=== PATIENT | female | born 1980 ===

== ENCOUNTER 2016-11-03 12:32 | Emergency (ER) | payer MEDICAID, OTHER ==
[2016-11-03 12:38] VITALS: RESP 16; O2SAT 98
--- NOTE | 2016-11-03 13:34 | C.PDOC ---
History Of Present Illness A 36 year old female, without a prior PMH, presents to the emergency room with complaints of sinus congestion, a mild headache, and itchy eyes for the last week. Patient notes mucus is clear in color. Patient denies fever, cough, sore throat, or any other complaints. Time Seen by Provider: 11/03/16 13:02 Chief Complaint (Nursing): Dizziness/Lightheaded History Per: Patient History/Exam Limitations: no limitations Onset/Duration Of Symptoms: Other (1 week) Current Symptoms Are (Timing): Still Present Location Of Pain: None Sick Contacts (Context): None Associated Symptoms: Sputum (Mucus is clear in color). denies: Fever, Chills, Sore Throat, Cough, Nausea, Vomiting, Diarrhea Ear Symptoms: Bilateral: None Severity: Mild Recent travel outside of the [place]: No Past Medical History Reviewed: Historical Data, Nursing Documentation, Vital Signs Vital Signs: Last Vital Signs Temp 97.2 F L 11/03/16 13:56 Pulse 88 11/03/16 13:56 Resp 16 11/03/16 13:56 BP 110/72 11/03/16 13:56 Pulse Ox 98 11/03/16 13:56 Family History: States: No Known Family Hx - Social History Hx Alcohol Use: No Hx Substance Use: No - Immunization History Hx Tetanus Toxoid Vaccination: Yes Hx Influenza Vaccination: Yes Hx Pneumococcal Vaccination: Yes Review Of Systems Except As Marked, All Systems Reviewed And Found Negative. Constitutional: Negative for: Fever, Chills Eyes: Positive for: Other (Itchy eyes) ENT: Positive for: Other (Sinus congestion). Negative for: Throat Pain (Sore throat) Respiratory: Negative for: Cough Gastrointestinal: Negative for: Nausea, Vomiting, Diarrhea Neurological: Positive for: Headache Physical Exam - Physical Exam Appears: Non-toxic Skin: Warm, Dry, No Rash Head: Atraumatic, Normacephalic Eye(s): bilateral: Normal Inspection Ear(s): Bilateral: Normal Nose: Other (Boggy terminants ) Oral Mucosa: Moist Neck: Normal ROM, No Midline Cervical Tenderness, No Paracervical Tenderness, Supple Cardiovascular: Rhythm Regular Respiratory: Normal Breath Sounds, No Rales, No Rhonchi, No Wheezing Gastrointestinal/Abdominal: Soft, No Tenderness Extremity: Normal ROM, No Tenderness Neurological/Psych: Oriented x3, Normal Speech, Normal Cognition ED Course And Treatment O2 Sat by Pulse Oximetry: 98 Medical Decision Making Medical Decision Making: Patient is asking for medications to go home with. Patient doesn't want anything that will cause her to stay in the ER. Disposition - Disposition Referrals: [facility] [Outside] [facility] [Outside] [facility] [Outside] Disposition: HOME/ ROUTINE Disposition Time: 02:00 Condition: GOOD Additional Instructions: please follow up with your doctor/clnic. return to er with worsening symptoms or concerns Prescriptions: Fluticasone Propionate [Flonase] 1 spr NS DAILY #1 bottle Loratadine [Claritin] 10 mg PO DAILY PRN #20 tab PRN Reason: Allergy Symptoms Instructions: Rhinosinusitis (ED), Allergies (ED) Print Language: MONEGASQUE - Clinical Impression Clinical Impression: rinosinusitis allergy - Scribe Statement The provider has reviewed the documentation as recorded by the Scribace Garcia All medical record entries made by the Ryneibace were at my direction and personally dictated by me. I have reviewed the chart and agree that the record accurately reflects my personal performance of the history, physical exam, medical decision making, and the department course for this patient. I have also personally directed, reviewed, and agree with the discharge instructions and disposition.
[2016-11-03 13:58] VITALS: BP 110/72; PULSE 88; TEMP 97.2
== END 2016-11-03 13:30 | disposition home or self-care (01) ==
LOC: C.ER 12:32
DX: J30.9 Allergic rhinitis, unspecified (principal)

== ENCOUNTER 2018-10-21 11:17 | Emergency (ER) | payer MEDICAID, OTHER ==
[2018-10-21 11:24] VITALS: BP 118/79; PULSE 82; RESP 18; TEMP 97.3; O2SAT 97
[2018-10-21] MEDS ORDERED: Amoxicillin-Clav 875-125 mg Tab PO STA (11:47)
--- NOTE | 2018-10-21 11:52 | C.PDOC ---
History Of Present Illness 38 yo female come in for evaluation of nasal congestion, intermittent headache, Right earache developed for past 3-4 days. Also , had episode of suprapubic pain this AM. Denies high fever, chills, severe headache, dizziness, ear discharge, drooling, neck pain, CP, SOB, dyspnea, wheezing, V/D, hematuria, vaginal irritation or discharge. Ambulatory, not in any apparent distress. Time Seen by Provider: 10/21/18 11:36 Chief Complaint (Nursing): ENT Problem History Per: Patient Past Medical History Reviewed: Historical Data, Nursing Documentation, Vital Signs Vital Signs: Last Vital Signs Temp 97.3 F L 10/21/18 11:20 Pulse 82 10/21/18 11:20 Resp 18 10/21/18 11:20 BP 118/79 10/21/18 11:20 Pulse Ox 97 10/21/18 11:20 Primary Care Provider: FAMILY PROVIDER,NO - Medical History PMH: No Chronic Diseases Family History: States: No Known Family Hx - Social History Hx Alcohol Use: No Hx Substance Use: No - Immunization History Hx Tetanus Toxoid Vaccination: Yes Hx Influenza Vaccination: Yes Hx Pneumococcal Vaccination: Yes Review Of Systems Except As Marked, All Systems Reviewed And Found Negative. Constitutional: Negative for: Fever, Chills ENT: Positive for: Ear Pain, Nose Discharge, Nose Congestion. Negative for: Ear Discharge, Throat Pain, Throat Swelling Cardiovascular: Negative for: Chest Pain Respiratory: Negative for: Cough, Shortness of Breath, Wheezing Gastrointestinal: Negative for: Nausea, Vomiting, Abdominal Pain, Diarrhea Genitourinary: Negative for: Dysuria, Frequency, Hematuria, Vaginal Discharge, Vaginal Bleeding Musculoskeletal: Negative for: Back Pain Skin: Negative for: Rash Neurological: Positive for: Headache. Negative for: Altered Mental Status, Dizziness Physical Exam - Physical Exam Appears: Well, Non-toxic, No Acute Distress Skin: Normal Color, Warm, Dry, No Rash Head: Normacephalic Eye(s): bilateral: PERRL Ear(s): Left: Normal, Right: TM Erythema (no mastoid tenderness B/L) Nose: No Flaring, Discharge (clear B/L) Oral Mucosa: Moist Tongue: Normal Appearing Lips: Normal Appearing Throat: Erythema (mod B/L), No Exudate, No Drooling Neck: Trachea Midline, Supple Cardiovascular: Rhythm Regular Respiratory: No Decreased Breath Sounds, No Accessory Muscle Use, No Stridor, No Wheezing Gastrointestinal/Abdominal: Soft, Tenderness (mild suprapubic), No Distention, No Guarding, No Rebound Back: No CVA Tenderness Extremity: Normal ROM, No Deformity Neurological/Psych: Oriented x3, Normal Speech ED Course And Treatment - Laboratory Results Urine POC: Negative O2 Sat by Pulse Oximetry: 97 Pulse Ox Interpretation: Normal Progress Note: On re-eval, pt is afebrile, hemodynamicaly stable. Non-toxic. PulsEOx 97% RA. ENT: exam c/w Right otitis media, mild pharyngitis. neck: SUpple, (-) meningeal sign. Lungs: CTA B/L, BS equal B/L. Abd: benign, (-) guarding, (-) rebound. back: (-) CVA tenderness. UA review, normal. Pt advised. ref. to f/u with PMD in 2-3 days for re-eval. return if any worsening or new changes Disposition Counseled Patient/Family Regarding: Studies Performed, Diagnosis, Need For Followup, Rx Given - Disposition Referrals: [facility] [Outside] Disposition: HOME/ ROUTINE Disposition Time: 12:20 Condition: STABLE Additional Instructions: Encourage fluids Take medication as prescribed Follow with PMD, ENT in 2-3 days for re-evaluation. return to Ed if any worsening or new changes Prescriptions: Amoxicillin/Clavulanate [Augmentin 875 MG-125 MG] 1 tab PO BID #14 tab Ibuprofen [Motrin Tab] 600 mg PO BID #10 tab Loratadine [Claritin] 10 mg PO DAILY #20 tab Instructions: Sinusitis in Adults Forms: [facility] (Malaysian) Print Language: AZERI - Clinical Impression Clinical Impression: Sinusitis
[2018-10-21 12:03] LABS: HCG,QUALITATIVE URINE NEGATIVE (NEGATIVE)
[2018-10-21] MEDS ORDERED: Amoxicillin-Clav 875-125 mg Tab PO ONE (12:08)
[2018-10-21 12:32] LABS: URINE BILIRUBIN NEGATIVE (NEGATIVE); URINE BLOOD NEGATIVE (NEGATIVE); URINE CLARITY Clear (Clear); URINE COLOR Colorless (YELLOW); URINE GLUCOSE (UA) NORMAL (Normal); URINE LEUKOCYTE ESTERASE NEG Leu/uL (Negative); URINE PROTEIN NEGATIVE (NEGATIVE); URINE UROBILINOGEN NORMAL mg/dL (0.2-1.0)
== END 2018-10-21 12:43 | disposition home or self-care (01) ==
LOC: C.ER 11:17
DX: J32.9 Chronic sinusitis, unspecified (principal)